=== PATIENT | male | born 1995 | race Caucasian/White ===

== ENCOUNTER → 2019-11-30 | Outpatient (CLI) | payer OTHER ==
[~2019-11-30] MED LIST: GADOTERATE 5 MMOL/10ML VIAL. IVP ONE; IOHEXOL 300 MG/ML 50 ML VIAL. IJ ONE
--- NOTE | 2019-11-30 12:02 | RAD ---
MR arthrogram of the right hip HISTORY: Right hip pain. TECHNIQUE: After intra-articular contrast injection, axial and limited sagittal T1 fat-suppressed images, and sagittal and coronal T2 fat suppressed images were obtained. At this point, there apparently was a MR scanner malfunction and the exam could not be completed. FINDINGS: Exam is limited as stated above, but there is some diagnostic information. The anterior labrum is partially seen on the sagittal T1-weighted images, which demonstrates a thin linear contrast signal defect suspicious for tear. Articular cartilage at the right hip appears intact. Limited bone and marrow evaluation given the lack of T1 nonfat suppressed sequences but no definite marrow edema, infiltration or acute fracture. Gluteus minimus and medius tendon attachments, hamstring tendon attachment, iliopsoas tendon insertion and rectus femoris tendon attachment appear intact on the sagittal and coronal T2-weighted images. IMPRESSION: 1. Very limited exam, as could not be completed due to MR scanner malfunction. 2. There does appear to be a small anterior labral tear, incompletely seen. 3. No other definite findings. However, patient could be sent back for repeat exam at no additional charge if desired. Electronically signed by: Tushar Pak MD (11/30/2019 11:59 AM) [id number]
--- NOTE | 2019-11-30 12:26 | RAD ---
EXAM: Fluoroscopically guided right hip injection for MR arthrography. HISTORY: 24-year-old man with right hip pain. TECHNIQUE: The risks and benefits of the procedure were discussed with the patient and written and verbal consent were obtained. A time out procedure was performed. Fluoroscopic imaging of the right hip was performed. The overlying skin was sterilely prepped and infiltrated with 1% lidocaine for local anesthesia. A 22-gauge spinal needle was then advanced into the joint space under fluoroscopic guidance. Intra-articular positioning positioning was confirmed with a small injection of iodinated contrast. 12 mL of 1:200 dilution gadolinium contrast (Dotarem) with saline and iodinated contrast was injected under fluoroscopic control. Instrumentation was withdrawn and a sterile dressing placed. There were no immediate complications. The patient was transferred to the MR suite for additional imaging. Fluoroscopy time 1.2 minutes. 4 images were obtained. Refer to the MR report for additional detail. IMPRESSION: Successful fluoroscopically guided right hip injection for MR arthrography. Please refer to the separate MR report for additional detail. Electronically signed by: Landen Jennings MD (11/30/2019 12:22 PM) [id number]
== END | disposition home or self-care (01) ==
LOC: RAD 07:21
PROVIDERS: ATTEND Nurse Practitioner Family
DX: M25.651 Stiffness of right hip, not elsewhere classified (principal)
CPT/HCPCS: 73525; 73722; A9575; Q9967